=== PATIENT | female | born 1995 | race Caucasian/White ===

== ENCOUNTER 2019-05-19 10:31 | Outpatient (CLI) | payer BC, MEDICAID, SELFPAY ==
--- NOTE | 2019-05-19 09:15 | DI.US_ITS ---
SYMPTOM/DIAGNOSIS: R/O ECTOPIC +UPT, BLEEDING, CRAMPING Z32.01 O20.9 026.891 R10.2 OB ULTRASOUND: An intrauterine mccann is demonstrated with crown/rump measurements consistent with a gestational age of 6 weeks 5 days. A yolk sac is identified. The amniotic fluid is normal The cardiac rate is 139 BPM. There is an apparent corpus luteum cyst involving the right ovary. Please see the ultrasound worksheet for the complete results of this examination. Many abnormalities cannot be diagnosed. A normal exam does not exclude a congenital anomaly. HISTORY: + PREG TEST, BLEEDING, CRAMPING. R/O ECTOPIC Date of exam: 05/19/2019 LMP: 03/30/19 EDC by LMP: 01/04/20 Previous study: N/A 7 +1 wks Range: 6 +1 to 8 +1 EDC by prior us: Findings: Prior surgery/: N/A BIOMETRY: PELVIC MEASUREMENTS: CRL: 7.5 mm 6 +5 wks Uterus: 9.0 X 4.0 X 5.4 cm Yolk sac: 3.0 mm -- wks Gest sac: mm wks Rt Ovary: 2.5 X 2.2 X 21.8 cm BPD: mm wks HC: mm wks Lt Ovary: 3.4 X 1.8 X 1.7 cm AC: mm wks FL: mm wks Comments: 1.6 X 1.4 X 1.5 CM COMPLEX RT OVARIAN CYST, ? CORPUS LUTEUM Composite Age (US): 6 +5 wks EDC by US: 01/07/2020 Heart Rate: 139 BPM Amniotic Fluid: Normal Movement noted: No Comments:
[2019-05-19 12:14] LABS: HCG Quant, Pregnancy 9967 mIU/mL (1-3)
== END 2019-05-19 10:51 ==
PROVIDERS: Visit Provider Nurse Practitioner Women's Health
DX: O20.9 Hemorrhage in early pregnancy, unspecified (principal); O26.891 Other specified pregnancy related conditions, first trimester; R10.2 Pelvic and perineal pain; Z32.01 Encounter for pregnancy test, result positive; N83.11 Corpus luteum cyst of right ovary
CPT/HCPCS: 36415; 76801; 84702

== ENCOUNTER 2019-05-23 11:11 | Outpatient (CLI) | payer BC, MEDICAID, SELFPAY ==
[2019-05-23 16:19] LABS: HCG Quant, Pregnancy 17586 mIU/mL (1-3)
== END 2019-05-23 11:31 ==
PROVIDERS: Visit Provider Nurse Practitioner Women's Health
DX: O20.9 Hemorrhage in early pregnancy, unspecified (principal)
CPT/HCPCS: 36415; 86850; 86900; 86901; 84702

== ENCOUNTER 2019-05-30 07:36 | Emergency (ER) | payer BC, MEDICAID, SELFPAY ==
[2019-05-30 07:40] VITALS: BP 121/70; PULSE 83; RESP 12; TEMP 36.2; O2SAT 98
--- NOTE | 2019-05-30 07:42 | W.ED.GENAD ---
Discharge Plan Disposition Patient Disposition: HOME Condition: Stable Discharge Details Chief Complaint: Sorethroat Clinical Impression: Upper respiratory infection Primary Care Provider: Unknown,Unknown ED Provider: Alicia Hernandez Home Meds and New Rx's Prescriptions: No Action prenat.vits,ludy,lyx-exed-mbjnl tablet 1 tab PO DAILY RF: 0 PrePlus 27 mg iron- 1 mg tablet 1 tab PO DAILY Qty: 90 RF: 5 ondansetron HCl 4 mg tablet 4 mg PO TID PRN (Reason: nausea and vomiting) 5 Days Qty: 30 RF: 5 Discharge Instructions Instructions: Upper Respiratory Infection (ED), Allergies (ED) Additional Instructions: Please return immediately to the emergency department if you develop any new or worsening symptoms or if you become otherwise concerned. You may use your albuterol inhaler as prescribed, you may also take tgzb-wbr-qkvqglm Claritin for your symptoms. 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 Stand Alone Forms: Work Release Referrals: Ramakrishna Whitaker MD [ [facility] STAFF PHYSICIAN] - Discharge Data Discharge Date/Time-TO BE ENTERED AT DEPARTURE: 05/30/19 09:56 Medical Decision Making Milagro Cagle is a 24 y/o woman G2, P0 at 9 weeks gestational age who presented to the emergency department with nasal congestion, cough increasing over the past week. Mild SOB c/w prior asthma that resolves entirely after albuterol inh, not currently occurring. On exam patient is well and nontoxic appearing. Lungs are clear to auscultation, normal work of breathing. Normal exam of the oropharynx. Concern for likely viral URI possibly complicated by seasonal allergies. Doubt influenza but given patient is will send. Rapid strep negative. Exam/history is not consistent with sepsis, pulmonary embolism, ACS, RPA/TPA or other deep space infection. Doubt pneumonia, no fever, normal pulmonary exam, I do not believe that chest x-ray is indicated at this time. Risks/benefits of chest x-ray discussed with patient, who requests no chest x-ray. Plan for flu swab. Flu swab neg. Plan for OTC Claritin, continue albuterol inhaler use as needed, outpatient follow-up with patient's PCP. Had a lengthy discussion with the patient regarding return to emergency department precautions, importance of outpatient follow-up, and home care. Patient verbalized understanding of the plan was amenable. Patient was discharged home with clear plan for outpatient follow-up. All questions were answered. Medical Records Medical records reviewed: Yes I reviewed the patient's medical records. Lab Data Lab results reviewed: Yes I reviewed the patient's lab results. HPI General Mode of arrival: ambulatory. Date/Time Provider Initiated Documentation: 05/30/19 07:42. Limitations to Documentation: no limitations. Information obtained by: patient, RN notes reviewed and old records reviewed. HPI Narrative: Milagro Cagle is a 24 y/o woman G2, P0 presenting to the emergency department with nasal congestion and cough. Patient reports that she is 9 weeks and [facility], has next appointment 4 days from today. Patient states that she has had a sore throat for approximately 1 week, and the sore throat seems to be improving. She reports that it is not hurting her at this time. Patient reports that since onset of her sore throat she has had nasal congestion that seems to be worsening, also with cough productive of green phlegm. She reports mild shortness of breath, and has used her inhaler twice starting yesterday for this. Shortness of breath was relieved after using inhaler. Patient reports feeling somewhat achy overall. Also with nausea that she attributes to her , but has not been vomiting. Did have diarrhea this morning. No fevers, no pain other than generalized achiness, no weakness/numbness the extremities, no rash, no vaginal bleeding, no dysuria. Has been eating and drinking as usual. No recent travel. Related Data Home Medications Medication Instructions Recorded Confirmed 1 tab PO DAILY 05/19/19 06/03/19 vitamin,calcium,fdcdpyfd-frej-wqbra acid tablet ondansetron HCl 4 mg tablet 4 mg PO TID PRN 5 Days #30 tab 06/03/19 06/03/19 vitamin with calcium 1 tab PO DAILY #90 tab 06/03/19 06/03/19 no.72-iron 27 mg-folic acid 1 mg tablet Previous Rx's Medication Instructions Recorded ondansetron HCl 4 mg tablet 4 mg PO TID PRN 5 Days #30 tab 06/03/19 vitamin with calcium 1 tab PO DAILY #90 tab 06/03/19 no.72-iron 27 mg-folic acid 1 mg tablet Allergies Allergy/AdvReac Type Severity Reaction Status Date / Time No Known Allergies Allergy Verified 06/03/19 10:12 Review of Systems Review of Systems Constitutional: denies fevers Eyes: denies eye pain ENT: denies facial pain, dental pain, reports sore throat Cardiovascular: denies chest pain, edema Respiratory: reports mild SOB, cough GI: denies abdominal pain, vomiting, reports mild diarrhea, nausea : denies flank pain MSK: denies back pain, neck pain, arthralgias, myalgias Skin: denies rash Neuro: denies headaches, numbness, weakness PFSH Medical History Marijuana smoker (Chronic) Family history of thyroid disease (Chronic) Family History Paternal Grandfather Alcohol abuse Paternal Aunt Alcohol abuse Mother Thyroid disorder Social History Smoking/Tobacco Use Status: Never Alcohol Intake: former Details: Quit 8 weeks ago due to Do you feel safe at home: Yes Do you feel safe in your relationship?: Yes Female Reproductive History Menstrual Age of Menarche: 13 control method: none History History 1 Para 0 Hx # Term Pregnancies Multiple births Hx # Pregnancies Ectopic pregnancies AB induced 1 Hx Number of Living Children AB spontaneous Exam Narrative Exam Narrative: Constitutional: well and dfz-ictiv-veuauhkuz, pleasant, conversing normally HENT: head atraumatic/normocephalic/normal inspection, mucous membranes moist, normal oropharynx without erythema/edema/intraoral lesion, no tonsillar edema or exudate, normal voice Eyes: conjunctiva normal, sclera normal, pupils 3mm b/l Neck: no stridor, normal ROM, trachea midline Chest: normal inspection Resp: normal work of breathing, LCTAB Cardio: normal rate, normal rhythm, no murmur appreciated Back: normal inspection, no rash Skin: warm, dry, normal color, no rash Neuro: alert, not altered, grossly non-focal, normal tone Ext: no edema, no posterior calf TTP Psych: normal mood, normal affect, normal behavior
== END 2019-05-30 09:56 | disposition home or self-care (01) ==
PROVIDERS: Emergency Provider Student in an Organized Health Care Education/Training Program
DX: O99.511 Diseases of the respiratory system complicating pregnancy, first trimester (principal); J06.9 Acute upper respiratory infection, unspecified; J45.909 Unspecified asthma, uncomplicated; Z3A.09 9 weeks gestation of pregnancy
CPT/HCPCS: 87449; 87880; 99282; 87081

== ENCOUNTER 2019-06-03 15:00 | Outpatient (REF) | payer BC, MEDICAID, SELFPAY ==
[2019-06-03 16:30] LABS: *AMPHETAMINES SCREEN URINE Negative (Negative); *BARBITURATES SCREEN URINE Negative (Negative); *BENZODIAZEPINES SCREEN URINE Negative (Negative); Cannabinoids THC POSITIVE (Negative); Cocaine Screen,Urine Negative (Negative); METHADONE URINE SCREEN Negative (Negative); OPIATES URINE SCREEN Negative (Negative)
[2019-06-03 17:05] LABS: Tricyclic Antidepressants Negative (Negative)
[2019-06-06 13:49] LABS: Chlamydia Result Negative; GC Result Negative; Specimen Description CERVIX
[2019-06-08 11:30] LABS: Buprenorphine Negative; Norbuprenorphine Negative
== END 2019-06-03 15:20 ==
LOC: LBN 15:00
PROVIDERS: Visit Provider Advanced Practice Midwife
DX: Z34.91 Encounter for supervision of normal pregnancy, unspecified, first trimester (principal); Z11.3 Encounter for screening for infections with a predominantly sexual mode of transmission
CPT/HCPCS: 80307; 87491; 87591; 87086

== ENCOUNTER 2019-06-29 09:02 | Outpatient (CLI) | payer BC, MEDICAID, SELFPAY ==
[2019-06-29 09:53] LABS: Kit/Specimen SENT
[2019-06-29 10:16] LABS: Abs Immature Grans 0.02 k/cumm (0.0-0.09); Absolute Basophil Count 0.01 k/cumm (0.0-0.2); Absolute Eosinophil Count 0.15 k/cumm (0.0-0.7); Absolute Lymphocyte Count 1.15 k/cumm (1.2-3.4); Absolute Monocyte Count 0.36 k/cumm (0.11-0.7); Absolute Neutrophil Count 5.94 k/cumm (1.2-6.7); Basophils % 0.1; HCT 35.9 % (36.0-46.0); HGB 12.7 g/dL (12.0-15.5); Immature Grans % 0.3; Lymphocytes % 15.1; Mean Corp. HGB Concentration 35.4 g/dL (32.0-36.0); Mean Corpuscular Hemoglobin 30.7 pg (27.0-33.0); Mean Corpuscular Volume 86.7 fL (80-95); Mean Platelet Volume 10.2 fL (8.0-11.0); Monocytes % 4.7; Neutrophils % 77.8; Platelet Count 195 x1000/uL (130-400); RBC 4.14 m/cumm (4.00-5.20); RBC Distribution Width 12.3 % (11.7-14.6); White Blood Cell Count 7.63 k/cumm (4.4-10.8)
[2019-06-29 11:02] LABS: TSH (W/Ref FT4) 1.28 uIU/mL (0.36-3.74)
[2019-06-30 10:53] LABS: Hepatitis B Surface Ag Negative (NEGAT)
[2019-06-30 11:04] LABS: Hepatitis C Ab w Rflx HCV PCR Negative (NEGAT)
[2019-06-30 11:15] LABS: Rubella IgG Ab (UVM) Positive; Syphilis Serology (RPR) Negative (Negative); Varicella IgG Antibody Positive
[2019-06-30 11:20] LABS: HIV-1/2 Ag & Ab Screen Negative (NEGAT)
== END 2019-06-29 09:22 ==
PROVIDERS: Advanced Practice Midwife; Visit Provider Advanced Practice Midwife
DX: Z34.91 Encounter for supervision of normal pregnancy, unspecified, first trimester (principal); Z11.59 Encounter for screening for other viral diseases; Z11.4 Encounter for screening for human immunodeficiency virus [HIV]; Z01.84 Encounter for antibody response examination
CPT/HCPCS: 36415; 80055; 86787; 86803; 86850; 86900; 86901; 87340; 87389; 84443; 86592; 86762

== ENCOUNTER 2019-07-15 08:48 | Emergency (ER) | payer MEDICAID, SELFPAY ==
[2019-07-15 08:49] VITALS: BP 121/73; PULSE 91; RESP 18; TEMP 36.6; O2SAT 100
--- NOTE | 2019-07-15 08:50 | W.ED.GENAD ---
Discharge Plan Disposition Patient Disposition: HOME Condition: Stable Discharge Details Chief Complaint: Dizzy/Sync Clinical Impression: Orthostatic hypotension, Primary Care Provider: Federico Rodas ED Provider: Felix Harrison Home Meds and New Rx's Prescriptions: No Action PrePlus 27 mg iron- 1 mg tablet 1 tab PO DAILY Qty: 90 RF: 5 Discharge Instructions Instructions: Syncope (ED), Hypotension (ED) Additional Instructions: To prevent further episodes please continue to stay well-hydrated and eat proper nutrition. It is also recommended that you stand change positions slowly. Return to the emergency department immediately for any new or worsening symptoms otherwise follow-up with [facility] as needed. Referrals: [facility] [Provider Group] Discharge Data Discharge Date/Time-TO BE ENTERED AT DEPARTURE: 07/15/19 11:00 Medical Decision Making Patient presenting to the emergency department for chief complaint of near syncope. Patient came in via EMS due to her coworkers calling 911 while she was at work. Patient states that she was in a seated position when she stepped stood up quick and started noticing some vision changes and feeling lightheaded. She was assisted to the ground by a coworker but remembers speaking with her coworkers and does not feel she had a loss of consciousness. Patient denies any other symptoms including chest pain, palpitations, fever, urinary symptoms and states otherwise she is back to normal and feeling fine. Physical exam is unremarkable for any neurological or cardiac findings. heart tones reported in the 140s which I feel is appropriate and abdomen is soft nontender nonrigid. Plan to check labs and urinalysis. Pending results patient given IV fluids. Review of labs shows no anemia, nondiagnostic CMP, and urinalysis shows no UTI. Patient reassessed after IV fluids and continues to state improvement. Orthostatic vital signs was performed and unremarkable. Did speak with Tatum Chnichilla quality improvement coordinator in regards to follow-up for patient for orthostatic hypotension. She recommended patient stay well-hydrated and call the office as needed otherwise keep her scheduled appointment. Return precautions were discussed with patient. After discussion of diagnosis and plan of care patient has no further needs, questions, or concerns and states clear understanding to return to the emergency department for any worsening symptoms. HPI General Mode of arrival: EMS. Date/Time Provider Initiated Documentation: 07/15/19 08:54. Limitations to Documentation: no limitations. Information obtained by: patient and RN notes reviewed. History of Present Illness 24 year old F presents to the emergency department with the chief complaint of Near syncope, Quality is described as other (Denies pain or discomfort), Patient started experiencing this minute(s) (35) and it has been now resolved. Rest improves symptom(s), Other factors that worsen symptoms (standing up) . Patient notes no other symptoms.. Patient did receive the following treatments prior to arrival, none Related Data Home Medications Medication Instructions Recorded Confirmed vitamin with calcium 1 tab PO DAILY #90 tab 06/03/19 07/15/19 no.72-iron 27 mg-folic acid 1 mg tablet Previous Rx's Medication Instructions Recorded vitamin with calcium 1 tab PO DAILY #90 tab 06/03/19 no.72-iron 27 mg-folic acid 1 mg tablet Allergies Allergy/AdvReac Type Severity Reaction Status Date / Time No Known Allergies Allergy Verified 07/15/19 08:55 General Stated Complaint: Dizzy/Sync DAVONTE: 4 Review of Systems Constitutional Denies fever(s) and Denies headache(s) ENT Denies headache(s) Cardiovascular Reports as per HPI, Reports chest pain, Denies chest pain with activity, Denies syncope, Denies irregular heart rhythm, Denies palpitations and Denies dyspnea Respiratory Denies dyspnea Gastrointestinal Denies abdominal pain, Reports nausea (Which is improving) and Denies vomiting Genitourinary Reports other (Currently ) Neurologic Denies syncope and Denies headache(s) Endocrine Denies palpitations PFS Medical History Family history of thyroid disease (Chronic) Marijuana smoker (Chronic) Family History Paternal Grandfather Alcohol abuse Paternal Aunt Alcohol abuse Mother Thyroid disorder Social History Smoking/Tobacco Use Status: Never Alcohol Intake: former Substance use type: marijuana Details: Quit 8 weeks ago due to Do you feel safe at home: Yes Do you feel safe in your relationship?: Yes Female Reproductive History Menstrual Age of Menarche: 13 control method: none History History 2 Para 0 Hx # Term Pregnancies 0 Multiple births 0 Hx # Pregnancies 0 Ectopic pregnancies 0 AB induced 1 Hx Number of Living Children 0 AB spontaneous 0 Exam Const General: cooperative, healthy appearing, comfortable, no acute distress, not diaphoretic and not ill appearing Nutritional Appearance: average body habitus Orientation: alert, awake and oriented x3 Neck Neck: normal visual inspection, full ROM, trachea midline, supple and no anterior neck swelling Resp Effort & Inspection: normal respiratory effort and able to speak in complete sentences Auscultation: clear to auscultation bilaterally Cardio Jugular venous pressure: no JVD Rate: regular rate Rhythm: regular rhythm Heart Sounds: S1 normal, S2 normal, no click, no gallops, no murmurs and no rubs Bruits: no abdominal aortic bruits and no carotid bruits Pulses: radial pulses present bilaterally 2+ GI Inspection: normal to inspection Palpation: soft, no aortic enlargement, not firm, no guarding, no pulsatile masses, not rigid and nontender Skin General skin exam: no rashes or lesions noted Neuro General: alert, awake, oriented x3, tone normal, moves all extremities, normal light touch, pain and propioception, no meningeal signs, no focal motor deficits, CN's II-XI intact bilaterally and not confused Cognition: normal cognition Speech: speech normal
[2019-07-15] MEDS: Normal Saline 1,000 ML 1000 ML IV (09:05)
[2019-07-15 09:18] LABS: Abs Immature Grans 0.04 k/cumm (0.0-0.09); Absolute Basophil Count 0.02 k/cumm (0.0-0.2); Absolute Eosinophil Count 0.22 k/cumm (0.0-0.7); Absolute Monocyte Count 0.35 k/cumm (0.11-0.7); Absolute Neutrophil Count 6.84 k/cumm (1.2-6.7); Basophils % 0.2; Eosinophils % 2.6; HCT 35.7 % (36.0-46.0); HGB 12.4 g/dL (12.0-15.5); Immature Grans % 0.5; Lymphocytes % 12.8; Mean Corp. HGB Concentration 34.7 g/dL (32.0-36.0); Mean Corpuscular Hemoglobin 30.6 pg (27.0-33.0); Mean Corpuscular Volume 88.1 fL (80-95); Mean Platelet Volume 9.6 fL (8.0-11.0); Monocytes % 4.1; Neutrophils % 79.8; Platelet Count 221 x1000/uL (130-400); RBC 4.05 m/cumm (4.00-5.20); RBC Distribution Width 12.4 % (11.7-14.6); White Blood Cell Count 8.57 k/cumm (4.4-10.8)
[2019-07-15 09:30] VITALS: RESP 16
[2019-07-15 09:32] LABS: ALT 33 U/L (12-78); AST 15 U/L (15-37); Albumin 3.4 g/dL (3.4-5.0); Alkaline Phosphatase 52 U/L (46-116); Anion Gap 10.4 mmol/L (3-11); BUN 13 mg/dL (7-18); Bilirubin, Total 0.4 mg/dL (0.2-1.0); CO2 24.6 mmol/L (21.0-32.0); CREATININE 0.61 mg/dL (0.55-1.02); Calcium 8.7 mg/dL (8.5-10.1); Chloride 102 mmol/L (98-107); Glucose 103 mg/dL (70-100); Potassium 3.9 mmol/L (3.5-5.1); Sodium 137 mmol/L (136-145); Total Protein 7.3 g/dL (6.4-8.2)
[2019-07-15 09:42] VITALS: BP 116/68; PULSE 84; RESP 16; TEMP 36.6; O2SAT 100
[2019-07-15 10:03] LABS: Bilirubin Negative (Negative); Blood Negative (Negative); Clarity Sl Cloudy (Clear); Glucose Negative (Negative); Ketones Negative (Negative); Leukocyte Esterase Negative (Negative); Nitrite Negative (Negative); Specific Gravity 1.015 (1.005-1.025); Urobilinogen 0.2 EU/dL (Up TO 0.2); pH 7.5 (5-8)
[2019-07-15 10:26] VITALS: BP 102/56; BP 110/63; BP 113/60; PULSE 77; PULSE 79; PULSE 84
[2019-07-15 10:35] LABS: Bacteria Negative HPF (Negative); C & S Indicated? No; Casts Negative LPF (Negative); Crystals Negative HPF (Negative); Epithelial Cells Many HPF (Negative); Mucus Moderate (Negative); RBC Negative (0-2); WBC Negative HPF (0-5)
[2019-07-15 11:03] VITALS: BP 112/64; PULSE 92; RESP 16; TEMP 36.6; O2SAT 99
[2019-07-15 11:06] VITALS: BP 112/64; PULSE 92; RESP 16; TEMP 36.6; O2SAT 99
== END 2019-07-15 11:00 | disposition home or self-care (01) ==
PROVIDERS: Emergency Provider Nurse Practitioner Family; PCP Family Medicine
DX: O26.51 Maternal hypotension syndrome, first trimester (principal); Z3A.00 Weeks of gestation of pregnancy not specified
CPT/HCPCS: 36415; 80053; 96360; 99283; 81003; 81015; 85025

== ENCOUNTER 2019-08-03 00:36 | Outpatient (CLI) | payer BC, MEDICAID, SELFPAY ==
--- NOTE | 2019-08-03 13:51 | DI.US_ITS ---
SYMPTOMS/DIAGNOSIS: ROUTINE CARE, , Z34.90 OB ULTRASOUND: Predicted Gestational Age: Indication/History: 18 Wks Range: 17 to 19 Prior US done on: Determined by: First US LMP History EDC by prior US: 01/04/2020 For multiple gestations: Baby PLACENTA: Grade: 0-I Location: X Fundal Anterior Posterior PRESENTATION: X RT LT LOW LYING PREVIA Cephalic Trans (Head RT LT ) Varied Breech X BIOMETRY: Anatomy Identified: BPD: 40 mm 18+1 wks 4-chamber Heart X Heart Rate 150 BPM HC: 149 mm 18 wks LVOT X Post Fossa X AC: 124 mm 18 wks RVOT X Ventricles X FL: 26 mm 18 wks Stomach X Nose X Bladder X Lips X Cisterna Magna: 3.6 mm CI: 83 Kidneys X Palate X Cerebellum: 1.75 cm 3-vessel cord X Spine X EFW: 219 grms 44% Cord Insertion X NS= not seen Composite Age (US) 18 wks Many abnormalities cannot be diagnosed. A normal exam does not exclude congenital abnormality. EDC by US: 01/04/2020 Amniotic Fluid Index: Normal COMMENTS: 0 pounds 8 ounces RUQ: LUQ: RLQ: LLQ: Total: cm Biophysical Profile: Score 0/2 HERB (>2cm) Respirations (>30 sec) Body flexion/extension Extremity flexion/extension TOTAL SCORE RADIOLOGIST COMMENTS: Comparison is made with April,. The placenta is fundal and right sided. The fetus is in breech position. The biometric measurements correspond to 18 weeks 0 days, which is consistent with previous dating. No abnormalities are identified. The amount of amniotic fluid appears visually normal. IMPRESSION: survey is within normal limits.
== END 2019-08-03 00:56 ==
PROVIDERS: PCP Family Medicine; Visit Provider Advanced Practice Midwife
DX: Z34.91 Encounter for supervision of normal pregnancy, unspecified, first trimester (principal); N89.8 Other specified noninflammatory disorders of vagina
CPT/HCPCS: 76805; 87480; 87510; 87660

== ENCOUNTER 2019-08-31 09:16 | Outpatient (CLI) | payer BC, MEDICAID, SELFPAY ==
[2019-09-06 17:27] LABS: Result Summary NEGATIVE; Specimen WB Whole Blood
== END 2019-08-31 09:36 ==
PROVIDERS: PCP Family Medicine; Visit Provider Advanced Practice Midwife
DX: Z34.91 Encounter for supervision of normal pregnancy, unspecified, first trimester (principal); Z36.89 Encounter for other specified antenatal screening
CPT/HCPCS: 36415; 81220

== ENCOUNTER 2019-10-22 00:09 | Outpatient (CLI) | payer BC, MEDICAID, SELFPAY ==
[2019-10-22 09:39] LABS: HCT 34.3 % (36.0-46.0); HGB 11.7 g/dL (12.0-15.5); Mean Corp. HGB Concentration 34.1 g/dL (32.0-36.0); Mean Corpuscular Hemoglobin 30.8 pg (27.0-33.0); Mean Corpuscular Volume 90.3 fL (80-95); Mean Platelet Volume 9.4 fL (8.0-11.0); Platelet Count 206 x1000/uL (130-400); RBC Distribution Width 13.5 % (11.7-14.6); White Blood Cell Count 10.42 k/cumm (4.4-10.8)
[2019-10-22 09:41] LABS: Glucose,1 Hr (Glucola) 124 mg/dL (80-140)
== END 2019-10-22 00:29 ==
PROVIDERS: Advanced Practice Midwife; Visit Provider Advanced Practice Midwife
DX: Z34.93 Encounter for supervision of normal pregnancy, unspecified, third trimester (principal)
CPT/HCPCS: 36415; 82950; 85027

== ENCOUNTER 2019-11-22 02:48 | Outpatient (CLI) | payer BC, MEDICAID, SELFPAY ==
--- NOTE | 2019-11-22 12:53 | DI.US_ITS ---
EXAM: US OB HERB WEIGHT CLINICAL HISTORY: SIZE LESS THAN DATES, Z34.90 SUPERVISION NORMAL TECHNIQUE: Ultrasound performed using standard protocol. COMPARISON: US OB 2-3 trimester from 08/03/2019 FINDINGS: There is a single living intrauterine gestation. The fetus is in the cephalic presentation. h eart rate is 152 beats per minute. Estimated weight is 2282 grams. This is the 41st percentil e. Amniotic fluid index is 17.7 cm. Visually, the amniotic fluid is within normal limits. There is no evidence of previa. Estimated gestational age is 33 weeks 6 days. Due to the lie of the fetus, head evaluation was difficult. IMPRESSION: Single living intrauterine gestation. Estimated gestational age is 33 weeks 6 days.
== END 2019-11-22 03:08 ==
PROVIDERS: Visit Provider Advanced Practice Midwife
DX: O26.843 Uterine size-date discrepancy, third trimester (principal); Z3A.33 33 weeks gestation of pregnancy
CPT/HCPCS: 76816

== ENCOUNTER 2019-12-08 15:21 | Outpatient (REF) | payer BC, MEDICAID, SELFPAY ==
[2019-12-08 19:16] LABS: *AMPHETAMINES SCREEN URINE Negative (Negative); *BARBITURATES SCREEN URINE Negative (Negative); *BENZODIAZEPINES SCREEN URINE Negative (Negative); Cannabinoids THC POSITIVE (Negative); Cocaine Screen,Urine Negative (Negative); METHADONE URINE SCREEN Negative (Negative); OPIATES URINE SCREEN Negative (Negative)
[2019-12-08 19:21] LABS: Tricyclic Antidepressants Negative (Negative)
[2019-12-14 13:29] LABS: Buprenorphine Negative; Norbuprenorphine Negative
== END 2019-12-08 15:41 ==
LOC: LBN 15:21
PROVIDERS: Visit Provider Advanced Practice Midwife
DX: Z34.93 Encounter for supervision of normal pregnancy, unspecified, third trimester (principal); Z36.85 Encounter for antenatal screening for Streptococcus B
CPT/HCPCS: 80307; 87081

== ENCOUNTER 2020-01-06 21:05 | Inpatient (IN) | payer BC, MEDICAID, SELFPAY ==
[2020-01-06 22:26] LABS: HCT 36.2 % (36.0-46.0); HGB 12.7 g/dL (12.0-15.5); Mean Corp. HGB Concentration 35.1 g/dL (32.0-36.0); Mean Corpuscular Hemoglobin 30.6 pg (27.0-33.0); Mean Corpuscular Volume 87.2 fL (80-95); Mean Platelet Volume 9.9 fL (8.0-11.0); Platelet Count 221 x1000/uL (130-400); RBC 4.15 m/cumm (4.00-5.20); RBC Distribution Width 13.5 % (11.7-14.6); White Blood Cell Count 16.04 k/cumm (4.4-10.8)
[2020-01-07] MEDS: Lactated Ringers 1,000 ML 125 ML IV (00:30)
[2020-01-07] MEDS: fentaNYL 100 MCG/2 ML VIAL 50 MCG IVP (00:40)
[2020-01-07] MEDS: Lidocaine 1% Multi-Dose 20 ML VIAL (04:00)
[2020-01-07] MEDS: Acetaminophen 325 MG TAB 650 MG PO ×3 (04:07→23:34)
[2020-01-07] MEDS: Ibuprofen 600 MG TAB PO ×3 (04:07→23:34)
[2020-01-08 06:37] LABS: HCT 33.9 % (36.0-46.0); HGB 11.1 g/dL (12.0-15.5); Mean Corp. HGB Concentration 32.7 g/dL (32.0-36.0); Mean Corpuscular Hemoglobin 29.3 pg (27.0-33.0); Mean Corpuscular Volume 89.4 fL (80-95); Mean Platelet Volume 9.9 fL (8.0-11.0); Platelet Count 178 x1000/uL (130-400); RBC 3.79 m/cumm (4.00-5.20); RBC Distribution Width 14.1 % (11.7-14.6); White Blood Cell Count 10.96 k/cumm (4.4-10.8)
[2020-01-08] MEDS: Ibuprofen 600 MG TAB PO (07:01)
[2020-01-08] MEDS: Acetaminophen 325 MG TAB 650 MG PO (07:01)
== END 2020-01-08 14:10 | disposition home or self-care (01) | DRG 806 ==
PROVIDERS: Admitting Provider Advanced Practice Midwife; Visit Provider Advanced Practice Midwife
DX: O77.0 Labor and delivery complicated by meconium in amniotic fluid (principal); O99.324 Drug use complicating childbirth; Z37.0 Single live birth; O70.0 First degree perineal laceration during delivery; O48.0 Post-term pregnancy; Z3A.40 40 weeks gestation of pregnancy; O99.344 Other mental disorders complicating childbirth; F41.9 Anxiety disorder, unspecified; F12.90 Cannabis use, unspecified, uncomplicated
CPT/HCPCS: 36415; 85027; 86850; 86900; 86901; J3010; J3490

== ENCOUNTER 2020-02-13 14:32 | Observation (INO) | payer BC, MEDICAID, SELFPAY ==
--- NOTE | 2020-02-13 | DI.US_ITS ---
EXAM: US BREAST RT LIMITED CLINICAL HISTORY: R BREAST MASTITIS NOT IMPROVED WITH ANTIBIOTICS, ABSCESS, PAIN X 1 WEEK , WORSENING TECHNIQUE: Ultrasound right breast performed using standard protocol. COMPARISON: No exams were available for comparison FINDINGS: There is a complex fluid collection in the medial aspect of the right breast. It measures 3.4 x 2.4 x 3.6 cm. There is internal debris. There is surrounding increased blood flow. IMPRESSION: 3.4 x 2.4 x 3.6 cm complex fluid collection in the upper inner quadrant of the right breast. The find ing is suspicious for an abscess. DATA REPOSITORY:
[2020-02-13] MEDS: Ibuprofen 600 MG TAB PO (16:30)
[2020-02-13] MEDS: oxyCODONE 5 mg/Acetaminophen 325 mg TAB PO (16:31)
[2020-02-13 16:57] LABS: Abs Immature Grans 0.03 k/cumm (0.0-0.09); Absolute Basophil Count 0.01 k/cumm (0.0-0.2); Absolute Eosinophil Count 0.23 k/cumm (0.0-0.7); Absolute Monocyte Count 0.42 k/cumm (0.11-0.7); Absolute Neutrophil Count 7.52 k/cumm (1.2-6.7); Basophils % 0.1; Eosinophils % 2.3; HCT 38.2 % (36.0-46.0); HGB 13.3 g/dL (12.0-15.5); Immature Grans % 0.3 %; Lymphocytes % 16.3; Mean Corp. HGB Concentration 34.8 g/dL (32.0-36.0); Mean Corpuscular Hemoglobin 29.2 pg (27.0-33.0); Mean Platelet Volume 9.9 fL (8.0-11.0); Monocytes % 4.3; Neutrophils % 76.7; Platelet Count 254 x1000/uL (130-400); RBC 4.55 m/cumm (4.00-5.20); RBC Distribution Width 12.3 % (11.7-14.6); White Blood Cell Count 9.81 k/cumm (4.4-10.8)
--- NOTE | 2020-02-13 17:08 | W.PM.HP.N ---
Date of service: 02/13/20 Time of Service: 17:08 Assessment and Plan Assessment and plan (1) Abscess of right breast: Status: Acute Assessment and plan: Plan to begin vancomycin IV and provide analgesia as needed. Dr. Medellin from general surgery has kindly agreed to perform a needle drainage of the breast after a breast ultrasound showed a 3 x 3 cm pocket consistent with a fluid collection. Patient will will continue breast-feeding while on antibiotics. CBC was performed. Results are currently pending. History of Present Illness Patient is a 24-year-old female who [facility] evaluated at [facility] the day of admission for complaints of continued right breast erythema and pain. At time of examination in the office she had an area of erythema approximately 9 cm x 8 cm extending from the medial region towards the midline with a 3 cm well-circumscribed area of fluctuance towards the midline. Patient had been treated with doxycycline for approximately 5 days with no improvement in her symptoms. Decision was made to admit her for IV therapy incision and drainage after an ultrasound of the breast was performed. HPI 01/07/20. at 40.3w EGA. F. Sheron Dec Philippe; 6lbs 7 oz.Sheron Dec Philippe; 6lbs 7 oz. patient was discharged home successfully breast-feeding on day 2. 01/23/2020. 2-week post visit. Patient reported exclusive breast-feeding with no complaints of nipple excoriation, breast erythema or tenderness. 02/24/2020. Patient called the on-call CNM provider to complain of a plugged milk duct on the right breast. She had tried the usual remedies without success. She was given a prescription for dicloxacillin and told to begin to take it if she developed systemic symptoms or local pain or redness. 01/31/2020 patient called the office to report worsening of her symptoms but had not started the antibiotic as previously instructed. She developed some erythema and increasing tenderness. 02/06/2020. [facility] presented to the [facility] with report of right breast pain and erythema. She was encouraged to begin Dicloxacillin 500 mg 4 times a day. Review of Systems Constitutional Constitutional: Reports as per HPI, Denies chills, Denies excessive sweating, Reports fatigue (Patient reports normal for breast-feeding infant) and Denies night sweats Cardiovascular Cardiovascular: Reports system reviewed and no additional complaints, except as documented Respiratory Respiratory: Reports system reviewed and no additional complaints, except as documented Gastrointestinal Gastrointestinal: Denies change in bowel habits Genitourinary Comments: Lochia has subsided. Musculoskeletal Musculoskeletal: Reports system reviewed and no additional complaints, except as documented Integumentary/Breasts Skin/Breast: Reports as per HPI, Reports breast pain and Reports breast mass Psychiatric Psychiatric: Reports anxiety Endocrine Endocrine: Denies excessive sweating and Reports fatigue (Patient reports normal for breast-feeding ) [facility] Medical History (Updated 02/13/20 @ 17:06 by Alice Vieira MD) Abscess of right breast (Acute) 02/13/2020 arising out of mastitis. Patient admitted for IV antibiotic therapy and incision and drainage Family history of thyroid disease (Chronic) Marijuana smoker (Chronic) (Acute) Social History (Updated 02/13/20 @ 15:15 by Alice Vieira MD) Smoking/Tobacco Use Status: Never Alcohol Intake: former Substance use type: marijuana Details: Quit 8 weeks ago due to Household members: significant other, children and other Details: Cristian Chacon Number of Children: 1 Seatbelt use: always Do you feel safe at home: Yes Do you feel safe in your relationship?: Yes Female Reproductive History Menstrual Age of Menarche: 13 control method: none History History 2 Para 1 Hx # Term Pregnancies 1 Multiple births 0 Hx # Pregnancies 0 Ectopic pregnancies 0 AB induced 1 Hx Number of Living Children 1 AB spontaneous 0 Past Pregnancies Del. Date GA/Weeks # Outcome Route Wgt Sex [facility] No Successful vaginal 6 lb 7 oz Female Delivery Date: 01/07/20 Tatum Chinchilla CNM; labor augmented with low dose pitocin. Sheron. Alice Vieira Home Medications and Allergies Home Medications Medication Instructions Recorded Confirmed Type vitamin with calcium 1 tab PO DAILY #90 tab 06/03/19 02/13/20 Rx no.72-iron 27 mg-folic acid 1 mg tablet dicloxacillin 500 mg capsule 500 mg PO QID #40 cap 02/06/20 02/13/20 Rx fluconazole 200 mg tablet 200 mg PO DAILY 7 Days #7 tab 03/09/20 03/09/20 Rx Allergies Allergy/AdvReac Type Severity Reaction Status Date / Time No Known Allergies Allergy Verified 02/13/20 14:04 Exam Const General: no acute distress Nutritional Appearance: average body habitus Neck Neck: normal visual inspection Thyroid: thyroid normal Resp Effort & Inspection: normal respiratory effort Auscultation: clear to auscultation bilaterally Cardio Rate: regular rate Rhythm: regular rhythm GI Inspection: normal to inspection Palpation: soft, no hepatosplenomegaly and no masses (Uterus is involuted appropriately) General: deferred Skin Full body images: 1. Erythema with tenderness. Central to the erythema is a 3 cm circumferential area of fluctuance Extrem General: normal to inspection, full ROM and capillary refill normal Psych Appearance: grossly normal Mental Status: mental status grossly normal Speech and Movement: speech and movement normal Results Labs Result diagrams: 02/13/20 16:15 Labs: Laboratory Results - last 24 hr 02/13/20 16:15 WBC 9.81 RBC 4.55 Hgb 13.3 Hct 38.2 MCV 84.0 MCH 29.2 MCHC 34.8 RDW 12.3 Plt Count 254 MPV 9.9 Immature Gran % 0.3 Neutrophils % 76.7 Lymphocytes % 16.3 Monocytes % 4.3 Eosinophils % 2.3 Basophils % 0.1 Absolute Neutrophils 7.52 H Absolute Lymphocytes 1.60 Absolute Monocytes 0.42 Absolute Eosinophils 0.23 Absolute Basophils 0.01
[2020-02-13 17:10] LABS: C-Reactive Protein 3.11 mg/dL (0.0-0.3)
[2020-02-13] MEDS: Lactated Ringers 1,000 ML 125 ML IV (17:24)
[2020-02-13] MEDS: Normal Saline Flush 10 ML SYR IVP (17:27)
--- NOTE | 2020-02-13 18:41 | PGE_ITS ---
Date of Service Date of service: 02/13/20 Time of Service: 18:41 Assessment and Plan Assessment and plan (1) Pruritus: Start date: 02/13/20 Start time: 18:49 Status: Acute Assessment and plan: Rapid onset after approximately half of the vancomycin infusion. No evidence of respiratory issues. Plan at this time is to stop the vancomycin administer Benadryl and to change the antibiotic to Unasyn 3gm every 6 hours. Plan to continue pain medicine as needed, check CBC tomorrow and inspect erythema. Appreciate general surgery's assistance. Subjective Subjective Patient reports: denies shortness of breath Interval history since last seen: Reports feeling puffy eyes approximately half the vancomycin dose has run in. She has redness along her ears forehead and over her maxillary sinus region. No redness along her trunk or arms. No complaints of shortness of breath nausea or vomiting or vision changes. She complains of feeling itchy Exam Narrative Exam Narrative: Patient received vancomycin at approximately same time she had a needle aspiration 10 cc of purulent discharge from the right medial breast area. She had no reaction to the presence of the lidocaine proximally 10 cc of 1% lidocaine with a dilute solution of epinephrine was infiltrated into the skin over the abscess prior to the insertion of the sterile needle and aspiration of mucopurulent material. Approximately an hour after the aspiration and residential through the vancomycin dose the patient complained of feeling itchy and was observed that she had the above-stated redness. Const General: no acute distress Nutritional Appearance: average body habitus Orientation: alert, awake and oriented x3 Eyes Periorbital: periorbital findings abnormal (Edema primarily over the eye socket her eyes are not occluded) bilaterally Eyelids: eyelid abnormality (Erythematous) right upper eyelid and left upper eyelid Conjunctivae: conjunctivae normal Sclera: sclerae normal Chest Chest: mass (The mass at the abscess site has decreased) and tenderness (At the site of the previous aspiration.) Breast inspection: Other (Sterile dressing over the area of aspiration) Breast palpation: normal palpation of the breasts Resp Effort & Inspection: normal respiratory effort Cardio Rate: regular rate Rhythm: regular rhythm GI Inspection: normal to inspection Skin General skin exam: fluctuance (Over the right medial breast region has subsided. ) Rashes: other (Generalized erythema over forehead, maxillary area) Neuro General: patient alert, patient awake and patient oriented x3 Extrem General: normal to inspection Psych Appearance: grossly normal Mental Status: mental status grossly normal Objective Objective Clinical Data: Abnormal lab results 02/13/20 02/13/20 Range/Units 16:15 16:15 Absolute Neutrophils 7.52 H (1.2-6.7) k/cumm C-Reactive Protein 3.11 H (0.0-0.3) mg/dL Laboratory Results WBC 9.81 k/cumm (4.4-10.8) 02/13/20 16:15 RBC 4.55 m/cumm (4.00-5.20) 02/13/20 16:15 Hgb 13.3 g/dL (12.0-15.5) 02/13/20 16:15 Hct 38.2 % (36.0-46.0) 02/13/20 16:15 MCV 84.0 fL (80-95) 02/13/20 16:15 MCH 29.2 pg (27.0-33.0) 02/13/20 16:15 MCHC 34.8 g/dL (32.0-36.0) 02/13/20 16:15 RDW 12.3 % (11.7-14.6) 02/13/20 16:15 Plt Count 254 x1000/uL (130-400) 02/13/20 16:15 MPV 9.9 fL (8.0-11.0) 02/13/20 16:15 Immature Gran % 0.3 % 02/13/20 16:15 Neutrophils % 76.7 02/13/20 16:15 Lymphocytes % 16.3 02/13/20 16:15 Monocytes % 4.3 02/13/20 16:15 Eosinophils % 2.3 02/13/20 16:15 Basophils % 0.1 02/13/20 16:15 Absolute Neutrophils 7.52 k/cumm (1.2-6.7) H 02/13/20 16:15 Absolute Lymphocytes 1.60 k/cumm (1.2-3.4) 02/13/20 16:15 Absolute Monocytes 0.42 k/cumm (0.11-0.7) 02/13/20 16:15 Absolute Eosinophils 0.23 k/cumm (0.0-0.7) 02/13/20 16:15 Absolute Basophils 0.01 k/cumm (0.0-0.2) 02/13/20 16:15 C-Reactive Protein 3.11 mg/dL (0.0-0.3) H 02/13/20 16:15
[2020-02-13 18:55] VITALS: BP 121/79; PULSE 69; RESP 16; TEMP 36.6; O2SAT 99
--- NOTE | 2020-02-13 19:20 | SCONE_ITS ---
Date of service: 02/13/20 Time of Service: 19:20 Assessment and Plan Assessment and plan (1) Abscess of right breast: Status: Acute Assessment and plan: needle aspiration. cultures sent routine supportive care vanco if does resolve in 24-48hrs- will need to go for open I & D (2) Mastitis: Status: Acute History of Present Illness Narrative: pt is admitted w/ R mastitis and breast abscess. denies fever/chills. no diarrhea. She is not a smoker. Neither her, nor the SO had MRSA before. She does not work in healthcare. She has not been exposed to MRSA. Consults Consult date: 02/13/20 Requesting physician: Alice Vieira Review of Systems All systems reviewed & are unremarkable except as noted in HPI and below Integumentary/Breasts Comments: right breast red swollen tender. [facility] Medical History Abscess of right breast (Acute) 02/13/2020 arising out of mastitis. Patient admitted for IV antibiotic therapy and incision and drainage Family history of thyroid disease (Chronic) Marijuana smoker (Chronic) (Acute) Family History Paternal Grandfather Alcohol abuse schirrosis Paternal Aunt Alcohol abuse Mother Thyroid disorder Social History Smoking/Tobacco Use Status: Never Alcohol Intake: former Substance use type: marijuana Details: Quit 8 weeks ago due to Household members: significant other, children and other Details: Elvin Chacon Number of Children: 1 Seatbelt use: always Do you feel safe at home: Yes Do you feel safe in your relationship?: Yes Female Reproductive History Menstrual Age of Menarche: 13 control method: none History History 2 Para 1 Hx # Term Pregnancies 1 Multiple births 0 Hx # Pregnancies 0 Ectopic pregnancies 0 AB induced 1 Hx Number of Living Children 1 AB spontaneous 0 Past Pregnancies Del. Date GA/Weeks # Outcome Route Wgt Sex Labor Lgth Anesthes ia Location [facility] 01/07/20 40 No Successful vaginal 2.92 kg Female Delivery Date: 01/07/20 Tatum Chinchilla CNM; labor augmented with low dose pitocin. Sheron. Alice Vieira Exam [facility] Head: normal to inspection Ears: hearing grossly normal bilaterally Mouth: oral mucosae normal Teeth and gingiva: dentition normal Resp Effort & Inspection: normal respiratory effort and able to speak in complete sentences Auscultation: clear to auscultation bilaterally GI Inspection: normal to inspection Palpation: soft Skin Other: right breast red swollen tender. obvious breast abscess Extrem General: full ROM, capillary refill normal and no clubbing, cyanosis or edema Results Last Vital Signs Temp 36.6 C 02/13/20 18:55 Pulse 69 02/13/20 18:55 Resp 16 02/13/20 18:55 BP 121/79 02/13/20 18:55 Pulse Ox 99 02/13/20 18:55 Labs Result diagrams: 02/13/20 16:15 Labs: Laboratory Results - last 24 hr 02/13/20 02/13/20 16:15 16:15 WBC 9.81 RBC 4.55 Hgb 13.3 Hct 38.2 MCV 84.0 MCH 29.2 MCHC 34.8 RDW 12.3 Plt Count 254 MPV 9.9 Immature Gran % 0.3 Neutrophils % 76.7 Lymphocytes % 16.3 Monocytes % 4.3 Eosinophils % 2.3 Basophils % 0.1 Absolute Neutrophils 7.52 H Absolute Lymphocytes 1.60 Absolute Monocytes 0.42 Absolute Eosinophils 0.23 Absolute Basophils 0.01 C-Reactive Protein 3.11 H
[2020-02-13] MEDS: AMPICILLIN/SULBACTAM 3 GM in Normal Saline 100 ML IVPB (20:31)
[2020-02-13 21:20] VITALS: BP 120/72; PULSE 71; RESP 18; TEMP 36.5; O2SAT 99
[2020-02-14 00:09] VITALS: BP 112/64; PULSE 71; RESP 18; TEMP 36.4
[2020-02-14] MEDS: AMPICILLIN/SULBACTAM 3 GM in Normal Saline 100 ML IVPB ×4 (02:26→20:00)
[2020-02-14] MEDS: Ibuprofen 600 MG TAB PO ×2 (03:47→12:34)
[2020-02-14 07:14] LABS: HCT 35.8 % (36.0-46.0); Mean Corp. HGB Concentration 33.5 g/dL (32.0-36.0); Mean Corpuscular Hemoglobin 28.8 pg (27.0-33.0); Mean Corpuscular Volume 86.1 fL (80-95); Mean Platelet Volume 9.5 fL (8.0-11.0); Platelet Count 213 x1000/uL (130-400); RBC 4.16 m/cumm (4.00-5.20); RBC Distribution Width 12.4 % (11.7-14.6); White Blood Cell Count 6.64 k/cumm (4.4-10.8)
--- NOTE | 2020-02-14 07:19 | W.PM.PROGNOT ---
Date of Service Date of service: 02/14/20 Time of Service: 07:19 Assessment and Plan Assessment and plan (1) Abscess of right breast: Status: Acute Assessment and plan: Patient reports discomfort has improved significantly compared to yesterday. Denies any fevers or chills. Continue Vancomycin. WBC count decreased to 6.64 compared to yesterday. May use heating pad to the area. Subjective Subjective Interval history since last seen: It feels a million times better. Denies any fevers or chills overnight. Exam Const General: cooperative, healthy appearing and comfortable Orientation: alert and oriented x3 Resp Effort & Inspection: normal respiratory effort, no audible wheezes and no cough Skin Other: Right breast medial aspect. Area of fluctulance is approximately the size of a quarter, which is surrounded by induration and dull erythema which extends 4 cm radius. Warm to touch and slightly tender to palpation. Objective Objective Clinical Data: Abnormal lab results 02/13/20 02/13/20 Range/Units 16:15 16:15 Absolute Neutrophils 7.52 H (1.2-6.7) k/cumm C-Reactive Protein 3.11 H (0.0-0.3) mg/dL Vital Signs Temperature 36.4 C 02/14/20 00:09 Temperature Source Oral 02/13/20 18:55 Pulse 71 02/14/20 00:09 Pulse Rhythm Regular 02/14/20 00:11 Respiratory Rate 18 02/14/20 00:09 Respiratory Effort 02/14/20 00:11 Respiratory Depth Normal 02/14/20 00:11 Respiratory Pattern Normal 02/14/20 00:11 Blood Pressure 112/64 02/14/20 00:09 Pulse Oximetry 99 02/13/20 21:20 Oxygen Delivery Method Room Air 02/14/20 00:09 Oxygen Flow Rate 0 02/14/20 00:09 Pain Level 2 02/14/20 00:09 Laboratory Results WBC 9.81 k/cumm (4.4-10.8) 02/13/20 16:15 RBC 4.55 m/cumm (4.00-5.20) 02/13/20 16:15 Hgb 13.3 g/dL (12.0-15.5) 02/13/20 16:15 Hct 38.2 % (36.0-46.0) 02/13/20 16:15 MCV 84.0 fL (80-95) 02/13/20 16:15 MCH 29.2 pg (27.0-33.0) 02/13/20 16:15 MCHC 34.8 g/dL (32.0-36.0) 02/13/20 16:15 RDW 12.3 % (11.7-14.6) 02/13/20 16:15 Plt Count 254 x1000/uL (130-400) 02/13/20 16:15 MPV 9.9 fL (8.0-11.0) 02/13/20 16:15 Immature Gran % 0.3 % 02/13/20 16:15 Neutrophils % 76.7 02/13/20 16:15 Lymphocytes % 16.3 02/13/20 16:15 Monocytes % 4.3 02/13/20 16:15 Eosinophils % 2.3 02/13/20 16:15 Basophils % 0.1 02/13/20 16:15 Absolute Neutrophils 7.52 k/cumm (1.2-6.7) H 02/13/20 16:15 Absolute Lymphocytes 1.60 k/cumm (1.2-3.4) 02/13/20 16:15 Absolute Monocytes 0.42 k/cumm (0.11-0.7) 02/13/20 16:15 Absolute Eosinophils 0.23 k/cumm (0.0-0.7) 02/13/20 16:15 Absolute Basophils 0.01 k/cumm (0.0-0.2) 02/13/20 16:15 C-Reactive Protein 3.11 mg/dL (0.0-0.3) H 02/13/20 16:15
--- NOTE | 2020-02-14 11:51 | ROE_ITS ---
DATE OF PROCEDURE: February 13, 2020 PREOPERATIVE DIAGNOSIS: Right breast abscess at the 3 o'clock position. POSTOPERATIVE DIAGNOSIS: Same. PROCEDURE: Needle aspiration. SURGEON: Maryan Medellin D.O. ANESTHESIA: Local. ESTIMATED BLOOD LOSS: 0.2 cc's CONDITION: The patient tolerated the procedure well without complication. HISTORY: Ms. Cagle is a 24-year-old female who gave five weeks ago. She has developed mastitis and a breast abscess and has failed outpatient antibiotic therapy. She was admitted for IV antibiotics and aspiration. Informed consent was obtained explaining risks and benefits of the procedure including but not limited to bleeding, infection, scarring and needing to go to the OR for formal I and D. Consent was obtained. A time-out was performed. PROCEDURE: The right breast at the [address] Vieira is in the room. The area was prepped and draped in the usual sterile fashion with a Betadine scrub solution. It is infiltrated with 10 cc's of 1% Lidocaine. Ultrasound is used to identify the area. There is quite a bit of debris in this area as well. Approximately 10 cc's of purulent discharge is removed. Ultrasound shows 90% collapse of the cavity. Pressure dressing is applied. We will use ice and she is on Vancomycin, as she failed outpatient Clindamycin therapy. She has no other risk factors for MRSA. No signs of sepsis. No DM. She is not a smoker. No known drug allergies. We will see if this resolves the problem and she can resolve the infection. If this is not resolved by Thursday or Thursday, then we will need to take her for formal incision and drainage and do packing. cc: Alice Vieira M.D. Tiffany Mackay M.D.
[2020-02-14] MEDS: Lactated Ringers 1,000 ML 125 ML IV ×2 (12:38→20:58)
[2020-02-14] MEDS: Normal Saline 500 ML 200 ML IV (14:27)
[2020-02-14 16:04] VITALS: BP 121/76; PULSE 79; RESP 16; TEMP 36.5; O2SAT 99
--- NOTE | 2020-02-14 17:20 | PGE_ITS ---
Date of Service Date of service: 02/14/20 Time of Service: 17:20 Assessment and Plan Assessment and plan (1) Abscess of right breast: Status: Acute Assessment and plan: Hospital day-admission for right breast abscess. Underwent needle aspiration of purulent material yesterday. Cultures are currently pending on the aspirate. Currently receiving Unisom 3 g every 6 hours IV after adverse reaction to vancomycin yesterday evening. Cultures currently pending. Plan is to have the patient n.p.o. after breakfast and anticipation of possible I&D in the OR during the day. She is agreeable to the plan Subjective Subjective Patient reports: feels better and pain is less Interval history since last seen: Patient underwent a needle aspiration of purul ent material from the breast abscess yesterday afternoon. Cultures of the abscess material currently pending. She states that her breast pain is markedly improved however the breast continues to be erythematous and the aspiration site has some swelling proximally 2 cm in diameter. Exam Narrative Exam Narrative: Hospital day 2 after admission from [facility] for right medial breast abscess followed by successful breast aspiration and initiation of IV therapy. Her initial treatment with vancomycin was interrupted secondary to an adverse reaction. She developed periorbital edema and redness on her face this despite having a very slow infusion rate for the vancomycin. She was switched to Augmentin 3 g every 6 hours throughout the night. She has required minimal analgesia for discomfort. She continues to nurse her infant on both breasts. Const General: no acute distress Nutritional Appearance: average body habitus Orientation: alert, awake and oriented x3 Chest Breast palpation: no axillary lymphadenopathy and axillary lymphadenopathy Chest/axillae images: 1. Area of erythema slightly decreased but continues red without blanching. 2. Ecchymosis and induration at site of previous needle aspiration Resp Effort & Inspection: normal respiratory effort GI Inspection: normal to inspection Palpation: soft and no hepatosplenomegaly General: deferred Skin General skin exam: ecchymosis (As previously noted) and erythema (As previously noted) Extrem General: normal to inspection Psych Appearance: grossly normal Mental Status: mental status grossly normal Speech and Movement: speech and movement normal Objective Objective Clinical Data: Abnormal lab results 02/14/20 Range/Units 07:01 Hct 35.8 L (36.0-46.0) % Vital Signs Temperature 97.7 F 02/14/20 16:04 Temperature Source Oral 03/17/20 16:04 Pulse 79 02/14/20 16:04 Pulse Rhythm Regular 02/14/20 16:04 Respiratory Rate 16 02/14/20 16:04 Respiratory Effort 02/14/20 16:04 Respiratory Depth Normal 02/14/20 16:04 Respiratory Pattern Normal 02/14/20 16:04 Blood Pressure 121/76 02/14/20 16:04 Pulse Oximetry 99 02/14/20 16:04 Oxygen Delivery Method Room Air 02/14/20 16:04 Oxygen Flow Rate 0 02/14/20 16:04 Pain Level 0 02/14/20 16:04 Intake & Output 02/13/20 02/14/20 02/14/20 23:59 11:59 23:59 Intake Total 200 / 2487.083 2287.083 / 2487.083 Balance 200 / 2487.083 2287.083 / 2487.083 Intake: IV 200 / 9911.500 5508.083 / 1587.083 Oral 900 / 900 Laboratory Results WBC 6.64 k/cumm (4.4-10.8) D 02/14/20 07:01 RBC 4.16 m/cumm (4.00-5.20) 02/14/20 07:01 Hgb 12.0 g/dL (12.0-15.5) 02/14/20 07:01 Hct 35.8 % (36.0-46.0) L 02/14/20 07:01 MCV 86.1 fL (80-95) 02/14/20 07:01 MCH 28.8 pg (27.0-33.0) 02/14/20 07:01 MCHC 33.5 g/dL (32.0-36.0) 02/14/20 07:01 RDW 12.4 % (11.7-14.6) 02/14/20 07:01 Plt Count 213 x1000/uL (130-400) 02/14/20 07:01 MPV 9.5 fL (8.0-11.0) 02/14/20 07:01 Immature Gran % 0.3 % 02/13/20 16:15 Neutrophils % 76.7 02/13/20 16:15 Lymphocytes % 16.3 02/13/20 16:15 Monocytes % 4.3 02/13/20 16:15 Eosinophils % 2.3 02/13/20 16:15 Basophils % 0.1 02/13/20 16:15 Absolute Neutrophils 7.52 k/cumm (1.2-6.7) H 02/13/20 16:15 Absolute Lymphocytes 1.60 k/cumm (1.2-3.4) 02/13/20 16:15 Absolute Monocytes 0.42 k/cumm (0.11-0.7) 02/13/20 16:15 Absolute Eosinophils 0.23 k/cumm (0.0-0.7) 02/13/20 16:15 Absolute Basophils 0.01 k/cumm (0.0-0.2) 02/13/20 16:15 C-Reactive Protein 3.11 mg/dL (0.0-0.3) H 02/13/20 16:15
[2020-02-14] MEDS: Normal Saline Flush 10 ML SYR IVP (20:13)
[2020-02-15] MEDS: Ibuprofen 600 MG TAB PO (01:10)
[2020-02-15 01:20] VITALS: BP 112/68; PULSE 55; RESP 18; TEMP 36.8; O2SAT 99
[2020-02-15] MEDS: AMPICILLIN/SULBACTAM 3 GM in Normal Saline 100 ML IVPB ×3 (02:17→13:23)
[2020-02-15] MEDS: Lactated Ringers 1,000 ML 125 ML IV (06:35)
--- NOTE | 2020-02-15 09:58 | PGE_ITS ---
Date of Service Date of service: 02/15/20 Time of Service: 08:34 Assessment and Plan Assessment and plan (1) Abscess of right breast: Status: Acute Assessment and plan: cultures: staph- MSSA resolving nicely. local wound care. top layer of epidermis abner slough. will feel hard and firm for 6-12 wks needs BM plan d/c home on augmentin for 5 days upper portion epidermis may slough. dermis is intact. probiotics for 30 days walk F/u dr. foster in office on thursday ice and ibuprofen or tylenol for pain breast feeding per [employer] (2) Mastitis: Status: Acute Subjective Subjective Interval history since last seen: Pt is doing well. no headaches. No CP or SOB. no productive cough. no dysuria. no leg pain or swelling. no fever/chills pt very concerned b/c of there was some foul smelling drainage last pm. Scant quantity- <1cc. the redness/swelling on the breast is resolving nicely. There is some echymosis /discoloration - abot 1cm, around the aspiration site/over the abscess cavity. The superficial portion of the tissue over this may slough. Pt is re assured that the infection is resolving nicely and this is normal. pt not had BM since admission pt only had 1 dose of vanco and had Rx. on zosysn Exam Narrative Exam Narrative: see above L: CTA A: soft breast: see above LE: no edema/redness/pain Objective Objective Clinical Data: Vital Signs Temperature 36.8 C 02/15/20 01:20 Temperature Source Oral 02/15/20 01:20 Pulse 55 L 02/15/20 01:20 Pulse Rhythm Regular 02/14/20 16:04 Respiratory Rate 18 02/15/20 01:20 Respiratory Effort Non-Labored 02/15/20 01:20 Respiratory Depth Normal 02/15/20 01:20 Respiratory Pattern Normal 02/15/20 01:20 Blood Pressure 112/68 02/15/20 01:20 Pulse Oximetry 99 02/15/20 01:20 Oxygen Delivery Method Room Air 02/15/20 01:20 Oxygen Flow Rate 0 02/15/20 01:20 Pain Level 4 02/15/20 01:20 Intake & Output 02/14/20 02/14/20 02/15/20 11:59 23:59 11:59 Intake Total 200 / 3903.750 3703.750 / 3903.750 8.333 / 2057.333 Balance 200 / 3903.750 3703.750 / 3903.750 2057.333 / 2057.333 Intake: IV 200 / 2403.750 2203.750 / 2403.750 8.333 / 2057.333 Oral 1500 / 1500 Laboratory Results WBC 6.64 k/cumm (4.4-10.8) D 02/14/20 07:01 RBC 4.16 m/cumm (4.00-5.20) 02/14/20 07:01 Hgb 12.0 g/dL (12.0-15.5) 02/14/20 07:01 Hct 35.8 % (36.0-46.0) L 02/14/20 07:01 MCV 86.1 fL (80-95) 02/14/20 07:01 MCH 28.8 pg (27.0-33.0) 02/14/20 07:01 MCHC 33.5 g/dL (32.0-36.0) 02/14/20 07:01 RDW 12.4 % (11.7-14.6) 02/14/20 07:01 Plt Count 213 x1000/uL (130-400) 02/14/20 07:01 MPV 9.5 fL (8.0-11.0) 02/14/20 07:01 Immature Gran % 0.3 % 02/13/20 16:15 Neutrophils % 76.7 02/13/20 16:15 Lymphocytes % 16.3 02/13/20 16:15 Monocytes % 4.3 02/13/20 16:15 Eosinophils % 2.3 02/13/20 16:15 Basophils % 0.1 02/13/20 16:15 Absolute Neutrophils 7.52 k/cumm (1.2-6.7) H 02/13/20 16:15 Absolute Lymphocytes 1.60 k/cumm (1.2-3.4) 02/13/20 16:15 Absolute Monocytes 0.42 k/cumm (0.11-0.7) 02/13/20 16:15 Absolute Eosinophils 0.23 k/cumm (0.0-0.7) 02/13/20 16:15 Absolute Basophils 0.01 k/cumm (0.0-0.2) 02/13/20 16:15 C-Reactive Protein 3.11 mg/dL (0.0-0.3) H 02/13/20 16:15
[2020-02-15 10:11] VITALS: BP 148/54; PULSE 55; RESP 14; TEMP 36.9
--- NOTE | 2020-02-15 10:12 | DSE_ITS ---
Date of service: 02/15/20 Time of Service: 10:18 DS: Diagnosis Discharge Diagnosis (1) Abscess of right breast: Status: Acute Discharge Plan Disposition Patient Disposition: HOME Condition: Improving Discharge Details Reason For Visit: RIGHT BREAST MASTITIS Admit Date/Time: 02/13/20 14:32 Admit Provider: Alice Vieira Attending Provider: Alice Vieira Primary Care Provider: Unknown,Unknown Hospital Course Hospital Course: Patient is a 24-year-old female who was approximately 5 weeks was admitted to [facility] on 02/13/20 with right breast erythema and pain. The area of erythema was 9 cm x 8 cm in the medial region towards the midline with a 3 cm well-circumscribed area of fluctuance towards the midline. Patient had been treated with doxycycline for approximately 5 days with no improvement in her symptoms. Decision was made to admit her for IV therapy incision and drainage after an ultrasound of the breast was performed. She was initially treated with IV vancomycin which resulted in erickson-orbital edema and facial flushing. She was switched to Unasyn 3 g every 6 hours and underwent a needle aspiration of the abscess. Preliminary cultures returned as staph aureus. She underwent a aspiration of the abscess cavity by Dr. Medellin which resolved her pain and by hospital day 3 the erythema had decreased and the patient was felt to be ready for discharge. Plan to discharge home today with prescription for Augmentin 875 mg twice daily for 5 days. She will continue ibuprofen as needed for pain. Home Meds and New Rx's Prescriptions: No Action PrePlus 27 mg iron- 1 mg tablet 1 tab PO DAILY Qty: 90 RF: 5 dicloxacillin 500 mg capsule 500 mg PO QID Qty: 40 RF: 0 fluconazole [Diflucan] 200 mg tablet 200 mg PO DAILY 7 Days Qty: 7 RF: 2 Discharge Instructions Additional Instructions: Continue to breast-feed as you have been doing. You have been given a prescription for Augmentin 875 mg take 1 tablet twice daily for 5 days. Take your antibiotics until they are completed. Call for a temperature over 101 ?F and chills, shakes or increasing pain or redness of the right or left breast. Follow-up with Dr. Vieira by phone next week. Call Activity:: Activity as Tolerated Equipment/Supplies:: No Equipment Needed Diet:: As Tolerated Discharge Orders Discharge Orders: Discharge Order (Routine); Ordered 02/15/20 Ordered By: Alice Vieira DS: Summary Status at Discharge Functional status at discharge: independent ambulation Overall status at discharge: patient is progressing back to baseline Mental Status: mental status grossly normal Speech and Movement: speech and movement normal Mood: congruent mood Affect: normal affect Exam Psych Mental Status: mental status grossly normal Speech and Movement: speech and movement normal Mood: congruent mood Affect: normal affect DS: Data Vitals/I&O Vitals and I&O: Vital Signs Temperature 98.2 F 02/15/20 01:20 Temperature Source Oral 02/15/20 01:20 Pulse 55 L 02/15/20 01:20 Pulse Rhythm Regular 02/14/20 16:04 Respiratory Rate 18 02/15/20 01:20 Respiratory Effort Non-Labored 02/15/20 01:20 Respiratory Depth Normal 02/15/20 01:20 Respiratory Pattern Normal 02/15/20 01:20 Blood Pressure 112/68 02/15/20 01:20 Pulse Oximetry 99 02/15/20 01:20 Oxygen Delivery Method Room Air 02/15/20 01:20 Oxygen Flow Rate 0 02/15/20 01:20 Pain Level 4 02/15/20 01:20 Intake & Output 02/14/20 02/14/20 02/15/20 11:59 23:59 11:59 Intake Total 200 / 3903.750 3703.750 / 3903.750 2058.333 / 8.333 Balance 200 / 3903.750 3703.750 / 3903.750 8.333 / 2057.333 Intake: IV 200 / 2403.750 2203.750 / 2403.750 8.333 / 2057.333 Oral 1500 / 1500 Data Completed and Pending Labs on day of discharge: Preliminary micro results at discharge 02/13/20 17:30 Body Fluid Culture - Preliminary Breast - Right Staphylococcus Aureus [facility] Medical History (Updated 02/15/20 @ 10:20 by Alice Vieira MD) Abscess of right breast (Acute) 02/13/2020 arising out of mastitis. Rx Augmentin, and needle aspiration. Family history of thyroid disease (Chronic) Marijuana smoker (Chronic) (Acute) Family History Paternal Grandfather Alcohol abuse schirrosis Paternal Aunt Alcohol abuse Mother Thyroid disorder Social History Smoking/Tobacco Use Status: Never Alcohol Intake: former Substance use type: marijuana Details: Quit 8 weeks ago due to Household members: significant other, children and other Details: Elvin Chacon Number of Children: 1 Seatbelt use: always Do you feel safe at home: Yes Do you feel safe in your relationship?: Yes Female Reproductive History Menstrual Age of Menarche: 13 control method: none History History 2 Para 1 Hx # Term Pregnancies 1 Multiple births 0 Hx # Pregnancies 0 Ectopic pregnancies 0 AB induced 1 Hx Number of Living Children 1 AB spontaneous 0 Past Pregnancies Del. Date GA/Weeks # Outcome Route Wgt Sex Labor Lgth Anesthes ia Location [facility] 01/07/20 40 No Successful vaginal 6 lb 7 oz Female Delivery Date: 01/07/20 Tatum Chinchilla CNM; labor augmented with low dose pitocin. Sheron. Alice Vieira
[2020-02-15] MEDS: Lactobacillus Acidophilus CAP 1 CAP PO (13:22)
[2020-02-15] MEDS: Milk of Magnesia 30 ML CUP PO (13:22)
== END 2020-02-15 15:00 | disposition home or self-care (01) ==
PROVIDERS: Surgery; Admitting Provider Obstetrics & Gynecology Gynecology; Visit Provider Obstetrics & Gynecology Gynecology
DX: O91.13 Abscess of breast associated with lactation (principal); O91.22 Nonpurulent mastitis associated with the puerperium; B95.61 Methicillin susceptible Staphylococcus aureus infection as the cause of diseases classified elsewhere; L29.9 Pruritus, unspecified; H05.223 Edema of bilateral orbit; R23.2 Flushing; T36.8X5A Adverse effect of other systemic antibiotics, initial encounter
CPT/HCPCS: 10160; 76942; 36415; 76642; 85027; 87077; 96360; 96361; 96365; 96366; 99222; 99231; 99232; 99233; 99252; NC; 85025; 86140; 87070; 87186; 87205; G0378; J0295; J3370